=== PATIENT | male | born 1990 | race Caucasian/White ===

== ENCOUNTER 2017-10-17 11:36 | Emergency (ER) | payer MEDICAID, OTHER ==
[~2017-10-17] VITALS: Ht 175.3 cm; Wt 92.1 kg
[2017-10-17 11:40] VITALS: BP 139/94; Ht 175.3 cm; Wt 92.1 kg
== END 2017-10-17 13:42 | disposition home or self-care (01) ==
LOC: ED 11:36
DX: S63.8X1A Sprain of other part of right wrist and hand, initial encounter (principal); I10 Essential (primary) hypertension; Z88.2 Allergy status to sulfonamides; W18.39XA Other fall on same level, initial encounter; Y93.89 Activity, other specified; Y92.89 Other specified places as the place of occurrence of the external cause; Y99.8 Other external cause status